=== PATIENT | female | born 1950 | race Caucasian/White ===

== ENCOUNTER 2016-07-16 14:10 | Outpatient (CLI) | payer OTHER ==
[~2016-07-16 14:10] MED LIST: ASPIRIN 81 LOW81 MG PO; IBUPROFEN600 MG PO; METOPROLOL SUCC25 MG PO; NITROSTAT0.4 MG SL; SIMVASTATIN40 MG PO; VITAMINS & MINERALS PO
--- NOTE | 2016-07-16 15:22 | DIAGNOSTIC IMAGING REPORT ---
PROCEDURE: DEXA BONE DENSITY STUDY CLINICAL INDICATION: POSTMENOPAUSAL COMPARISON: None. FINDINGS: LUMBAR SPINE: Bone mineral density 0.865 g/cm2, T score -1.7 osteopenia LEFT HIP: Bone mineral density 0.779 g/cm2, T score -1.3 osteopenia LEFT FEMORAL NECK: Bone mineral density 0.587 g/cm2, T score -2.4 osteopenia FRACTURE RISK CALCULATION ( when applicable): 10-year fracture risk of a major osteoporotic fracture 21% and of a hip fracture 3.6% (T score greater or equal to -1.0 to: NORMAL) (T score from -1.1 to -2.4: OSTEOPENIA) (T score ess than or equal to -2.5: OSTEOPOROSIS) IMPRESSION: 1. Osteopenia spine hip and femoral neck. 10-year fracture risk of 21% and a hip fracture risk of 3.6%
--- NOTE | 2016-07-16 16:36 | DIAGNOSTIC IMAGING REPORT ---
PROCEDURE: MG BILATERAL DIAGNOSTIC W/CAD INDICATION: 6-month follow-up palpable area right breast. Prior radiation and surgery for right breast carcinoma. Prior left breast biopsy. TECHNIQUE: CC and MLO digital views of each breast with true-lateral digital view of the right breast. In addition, spot compression CC and MLO views were obtained of the upper central right breast (region of clinical concern). Finally, high-resolution right breast ultrasound was performed (18 mHz). COMPARISON: Comparison made to right mammogram right breast ultrasound (12/21/2015), and screening mammogram studies (07/14/2015, 07/01/2014. FINDINGS: MAMMOGRAM: Computer-aided detection applied. Moderately dense parenchymal pattern. There are postoperative and postradiation changes of the upper central right breast which appears stable. No change. There is a surgical micro clip in the retroareolar left breast. BREAST ULTRASOUND: Postoperative changes and scarring in the upper central right breast which appears stable. IMPRESSION: 1. Stable postoperative /postradiation changes in the upper central right breast. 2. Otherwise negative mammogram and negative right breast ultrasound. 3. Findings discussed with the patient. 4. Resume routine screening schedule (June 2017). RESULT CODE: 2- Benign finding(s). A. A negative report should not delay biopsy if a dominant or clinically suspicious mass is present. 10-15% of cancers are not identified by x-ray. B. A negative report may reinforce clinical impression. C. Adenosis and dense breasts may obscure an underlying neoplasm. D. False positive reports average 6-10%. E.. A yearly screening mammogram is recommended. A reminder letter will be scheduled.
== END 2016-07-16 23:00 ==
LOC: XR SRH 14:10 → MAM SRH 15:30 → XR SRH 23:00
DX: N63 Unspecified lump in breast (principal); Z85.3 Personal history of malignant neoplasm of breast; Z92.3 Personal history of irradiation; M85.88 Other specified disorders of bone density and structure, other site